=== PATIENT | male | born 1955 | race Caucasian/White ===

== ENCOUNTER 2016-11-21 16:10 | Emergency (ER) | payer MEDICAID ==
[2016-11-21 16:19] VITALS: BP 128/75; PULSE 83; RESP 18; TEMP 98.1; O2SAT 95
--- NOTE | 2016-11-21 16:22 | UCPHY ---
H & P Patient Type: New HPI/ROS: CHIEF COMPLAINT: Urinary hesitancy. HISTORY OF PRESENT ILLNESS: The patient is a 61-year-old male who presents with one-second pauses during urination that began a few days ago. It does not take him long to begin urinating and he feels that he always empties his bladder fully. He denies fever. The urine is normal-smelling. The symptoms began after he began to use Sudafed and he is considered this is related. Unclear if this was plain Sudafed or if indeed there was an antihistaimne componenet, he did not bring the medication with him Seen by PCP, requested rectal exm, PSA performed, not in our system, unavialable. REVIEW OF SYSTEMS: Constitutional: No fever, no chills. Gastrointestinal: No nausea vomiting or diarrhea. No abdominal pain. Genitourinary: No hematuria or frequency. Musculoskeletal: No back pain. Skin: No rashes. Past Medical/Surgical History: Hypertension. Social History: Smoker. Smoking Status: Current every day smoker Physical Exam: General Appearance: Alert, no distress. Afebrile. Normal phonation. No respiratory distress. Eyes: Pupils equal and round no pallor or injection. No icterus Abdomen: Soft and nontender, no masses, bowel sounds normal. No CVAT. Neurological: Ox3. No motor weakness. Sensation intact. Gait nl. : Recommended to see a uologist for CA screening. Skin: Warm and dry, no rashes. Musculoskeletal: No joint swelling. Constitutional: Initial Vital Signs Temperature (C) 36.7 C 11/21/16 16:16 Heart Rate 83 11/21/16 16:16 Respiratory Rate 18 11/21/16 16:16 Blood Pressure 128/75 H 11/21/16 16:16 O2 Sat (%) 95 11/21/16 16:16 O2 Delivery Mode Room Air Allergies/Adverse Reactions: No Allergies [NKA] Allergy (Verified 11/21/16 16:16) Home Medications: Medication Instructions Recorded amLODIPine BESYLATE [Norvasc (RX)] 10 mg PO DAILY 12/06/11 clonazePAM [klonoPIN (RX)] 6 mg PO 12/06/11 Tiotropium Inhaler [Spiriva 1 inh IH PRN 03/18/12 Inhaler (RX)] Medical Decision Making ED Course/Re-evaluation: 61-year-old male presents with urinary hesitancy. He has no associated symptoms. He empties his bladder fully and denies having difficulty starting. He presents today concerned about prostate problems. He had PSA lab drawn 4 days ago. I informed him he should have a urologist perform a prostate exam as I am limited experience in this area. We will order a urinalysis and he will be referred to a urologist. Urinalysis negative. He will be discharged with Dr. Ralph referral. Differential Diagnosis: Differential diagnosis includes but is not limited to: Medication effect, BPH, Prostate CA, UTI Departure - Departure Disposition: Home, Routine, Self-Care Clinical Impression: Urinary hesitancy Condition: Good Instructions: Urinary Retention in Men (ED) Additional Instructions: Call Dr. Ralph, urology, tomorrow to set up a follow up appointment. Return for any serious worsening of condition. Referrals: Jodie Stubbs MD [Primary Care Provider] - As per Instructions Bruno Ralph MD [Medical Doctor] - As per Instructions - PQRS PQRS Measurement: Does not apply. Report Scribed for: Vinayak Sommer Report Scribed by: Roberto Saucedo Date of Report: 11/21/16 Time of Report: 16:22
[2016-11-21 18:11] LABS: COLOR YELLOW; LEUKOCYTE ESTERASE,URINE NEGATIVE (NEGATIVE); NITRITE,URINE NEGATIVE (NEGATIVE)
== END 2016-11-21 18:42 | disposition home or self-care (01) ==
LOC: CED 16:10
DX: R39.11 Hesitancy of micturition (principal); I10 Essential (primary) hypertension; Z72.0 Tobacco use
CPT/HCPCS: 81003-PO; G0463-PO